=== PATIENT | female | born 2000 | race African-American/Black ===

== ENCOUNTER → 2020-07-10 | Outpatient (CLI) | payer BC ==
[~2020-07-10] MED LIST: IOHEXOL 300 MG/ML 100ML VIAL. IV ONE
--- NOTE | 2020-07-11 09:37 | KCIC ---
PQRS Compliance Statement: One or more of the following individualized dose reduction techniques were utilized for this examinat ion: 1. Automated exposure control 2. Adjustment of the mA and/or kV according to patient size 3. Use of iterative reconstruction technique CT NECK SOFT TISSUE WITH IV CONTRAST 07/10/2020 12:55 PM Indication: Soft tissue mass in the posterior right side. COMPARISON: None available. TECHNIQUE: Multiple axial CT images of the neck were obtained after the intravenous administration of 70 cc Omnipaque 300. Coronal and sagittal reformats are provided. FINDINGS: The visualized brain parenchyma appears intact. The skull base is normal. The visualized paranasal si nuses and orbital contents are normal. The sella turcica and cavernous sinus regions appear intact. T he mastoid air cells are normal. Marker placed by the technologist corresponds with a right level 5 c ervical lymph node measuring 8 x 4 mm (series 2, image 34). Additional scattered nonenlarged cervical lymph nodes are identified bilaterally. The fossa of Rosenmuller is normal. The parotid space contents and rolled gold plater space contents appear i ntact. The parapharyngeal spaces are normal. The submandibular and sublingual space contents appear intact. The epiglottis, aryepiglottic folds, and piriform sinuses are normal. The vallecula appears normal. The larynx and trachea are normal. The thyroid lobes appear intact. The carotid space contents are normal. There is no deep cervical chain adenopathy observed. The jugul odigastric regions appear intact. The perivertebral space contents are normal. The supraclavicular regions appear intact. The visualiz ed mediastinum is normal. The visualized lungs appear intact. The visualized osseous structures are n ormal. Impression: BB corresponds to a nonenlarged right level 5 cervical lymph node measuring 8 x 4 mm. Liver is morpho logically normal without suspicious enhancement characteristics. No cystic changes or adjacent inflam mation to suggest suppurative adenopathy. No suspicious pharyngeal or laryngeal mass. Electronically signed by: Ruth Ann Voss MD (07/11/2020 9:34 AM) [id number]
== END ==
LOC: KCIC CT 12:53
PROVIDERS: ATTEND Family Medicine
DX: M79.89 Other specified soft tissue disorders (principal)
CPT/HCPCS: 70491; Q9967